=== PATIENT | female | born 1950 | race Caucasian/White ===

== ENCOUNTER 2025-09-03 08:59 | Outpatient (CLI) | payer OTHER | END 2025-09-03 09:00 | disposition home or self-care (01) | LOC: BICMAMMO 08:59 | PROVIDERS: ATTEND Student in an Organized Health Care Education/Training Program | DX: Z12.31 Encounter for screening mammogram for malignant neoplasm of breast (principal); Z78.0 Asymptomatic menopausal state; M85.89 Other specified disorders of bone density and structure, multiple sites | CPT/HCPCS: 77063; 77067; 77080 ==